=== PATIENT | male | born 2000 | race Hispanic/Latino ===

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

== ENCOUNTER 2021-06-23 15:23 | Emergency (ER) | payer OTHER, SELFPAY ==
[2021-06-23 16:21] LABS: Absolute Lymphocytes (CBC) 1.1 K/uL (0.7-4.9); Hematocrit 36.1 % (39.6-49.0); Lymphocytes % 7.1 % (15.3-44.8); MPV 7.7 fL (7.6-11.3); RBC Red Blood Cell Count 4.32 M/uL (4.33-5.43)
[2021-06-23] MEDS ORDERED: ONDANSETRON 4 MG/2 ML VIAL ONE (16:24)
[2021-06-23] MEDS ORDERED: NA CHLORIDE 0.9% 1,000 ML ONE (16:24)
[2021-06-23] MEDS ORDERED: ACETAMINOPHEN 325 MG TABLET ONE (16:24)
[2021-06-23 16:43] LABS: Potassium 3.4 mmol/L (3.5-5.1); Sodium Level 132 mmol/L (136-145)
[2021-06-23 16:46] LABS: Albumin 2.3 g/dL (3.4-5.0); BUN Blood Urea Nitrogen 10 mg/dL (7-18); Bicarbonate 28 mmol/L (21-32); Glucose Level 102 mg/dL (74-106); Lipase 127 U/L (73-393)
[2021-06-23 16:48] LABS: ALT/SGPT 55 U/L (12-78)
[2021-06-23 16:49] LABS: AST/SGOT 39 U/L (15-37)
[2021-06-23 16:50] LABS: Bilirubin Total 1.6 mg/dL (0.2-1.0); Protein, Total 8.6 g/dL (6.4-8.2)
[2021-06-23 16:51] LABS: Alkaline Phosphatase 157 U/L (45-117)
--- NOTE | 2021-06-23 16:59 | RAD REPORT ---
EXAM DESCRIPTION: RAD - Chest Single View - 06/23/2021 4:41 pm CLINICAL HISTORY: fever;Cough COMPARISON: No remote imaging TECHNIQUE: AP portable chest image was obtained 06/23/2021 4:41 pm . FINDINGS: Lung volumes are low. Right base opacification is present most likely pneumonia. No failur e or volume overload. Heart and vasculature are normal. No measurable pleural effusion and no pneumothorax. No acute bony abnormality seen. No acute aortic findings suspected. IMPRESSION: Right lung base pneumonia
--- NOTE | 2021-06-23 17:03 | RAD REPORT ---
EXAM DESCRIPTION: CT - Abdomen Pelvis W Contrast - 06/23/2021 4:37 pm CLINICAL HISTORY: fever, vomiting, not tolerating pO COMPARISON: CT chest same date, portable chest same date TECHNIQUE: Biphasic, helical CT imaging of the abdomen and pelvis was performed following 100 ml non -ionic IV contrast. No oral contrast administered. All CT scans are performed using dose optimization technique as appropriate and may include automated exposure control or mA/KV adjustment according to patient size. FINDINGS: Lung base findings are separately detailed CT chest report The liver, spleen, and pancreas show no suspicious findings. Gallbladder and biliary tree are also wi thout suspicious finding. Symmetric renal function is seen with no hydronephrosis or suspicious renal mass. No pyelonephritis o r acute parenchymal process. A 2.4 centimeter upper pole left renal cyst is present. A few additional sub centimeter renal cysts are present in the bilateral kidneys. No adrenal abnormalities. No urinar y bladder abnormality. No dilated bowel loops or bowel wall thickening. Appendix is normal. No free air, free fluid or infla mmatory stranding. No hernia, mass or bulky lymphadenopathy. No suspicious bony findings. IMPRESSION: Contrast enhanced CT abdomen and pelvis showing no acute or emergent finding. Please see separate CT chest report.
--- NOTE | 2021-06-23 17:07 | RAD REPORT ---
EXAM DESCRIPTION: CT - Thorax Wo Con - 06/23/2021 4:42 pm CLINICAL HISTORY: dyspnea, fever COMPARISON: Chest Single View dated 06/23/2021 TECHNIQUE: Axial 5 mm thick images of the chest were obtained without IV contrast. All CT scans are performed using dose optimization technique as appropriate and may include automated exposure control or mA/KV adjustment according to patient size. FINDINGS: Posterior right lower lobe consolidated parenchyma present. A few small air bronchograms a re present. A loculated pleural effusion is present in the posterior gutter on the right. Loculated f luid is relatively homogeneous. No air within the loculated fluid. Associated pleural thickening is p resent. Remaining right lobes and the left lung field are clear. No left-sided pleural fluid or pleur al thickening. No pneumothorax. No abnormal mediastinal or hilar masses or lymphadenopathy seen. No gross aortic or pulmonary artery finding suspected. Assessment is limited in the absence of IV contrast. No chest wall mass or abnormal axillary lymphadenopathy. IMPRESSION: Moderate-sized right lower lobe pneumonia with associated loculated pleural fluid collec tion in the posterior gutter. Presence of loculated pleural collection adjacent to pneumonia in a patient this age could indicate e mpyema.
[2021-06-23] MEDS ORDERED: CEFTRIAXONE 1000 MG/VIAL ONE (17:13)
[2021-06-23] MEDS ORDERED: AZITHROMYCIN 500 MG INJ IVPB ONE (17:14)
[2021-06-23] MEDS ORDERED: NA CHLORIDE 0.9% 250 ML ONE ×2 (17:14→21:32)
--- NOTE | 2021-06-23 17:37 | ER ---
Nurse's Notes [facility] Name: Francis Hughes Age: 21 yrs Sex: Male : 2000 Arrival Date: 06/23/2021 Time: 15:25 Bed 26 Private MD: Diagnosis: Pneumonia, unspecified organism;Empyema;Loculated pleural effusion Presentation: 06/23 15:42 Chief complaint: Patient states: "I have been having acid reflux and n/v for a week ab2 now. Im weak and SOB. I have had decreased appetite for a week now as well.". Coronavirus screen: Vaccine status: Patient reports receiving the 2nd dose of the covid vaccine. Client denies travel out of the [place] in the last 14 days. cough unrelated to allergies, difficulty breathing, fatigue, fever, Client presents with at least one sign or symptom that may indicate coronavirus-19. Standard/surgical mask placed on the client. Provider contacted for isolation considerations. Ebola Screen: Patient negative for fever greater than or equal to 101.5 degrees Fahrenheit, and additional compatible Ebola Virus Disease symptoms Patient denies exposure to infectious person. Patient denies travel to an Ebola-affected area in the 21 days before illness onset. No symptoms or risks identified at this time. Initial Sepsis Screen: Does the patient meet any 2 criteria? Temp <36.0*C (96.8*F)) or > 38.3*C (100.9*F). HR > 90 bpm. Yes Does the patient have a suspected source of infection? No. Patient's initial sepsis screen is negative. Risk Assessment: Do you want to hurt yourself or someone else? Patient reports no desire to harm self or others. Onset of symptoms is unknown. 15:42 Method Of Arrival: Ambulatory ab2 15:42 Acuity: ANDRÉS 3 ab2 23:03 Note Report given to [place] with [employer]. Pt will continue NS with 20mEQ ss7 of KCL \\T\\125ml and Vancomycin 1.5g \\T\\125ml. Pt in stable condition. All personal belongings taken home by mother. Triage Assessment: 15:48 General: Appears in no apparent distress. comfortable, Behavior is calm, cooperative, ab2 appropriate for age. Pain: Denies pain. GI: Reports intolerance of fluids, intolerance of food, nausea, vomiting. Historical: - Allergies: 17:49 No Known Allergies; jl7 - Home Meds: 15:47 None [Active]; ab2 - PMHx: 15:47 Gastric reflux; ab2 - PSHx: 15:47 None; ab2 - Immunization history:: Adult Immunizations up to date, Client reports receiving the 2nd dose of the Covid vaccine. - Social history:: Smoking status: Patient denies any tobacco usage or history of. - Family history:: not pertinent. - Hospitalizations: : No recent hospitalization is reported. Screenin:39 Abuse screen: Denies threats or abuse. Nutritional screening: No deficits noted. ss7 Tuberculosis screening: No symptoms or risk factors identified. Fall Risk IV access (20 points). Assessment: 16:20 General: Appears in no apparent distress. comfortable, Behavior is calm, cooperative, ss7 appropriate for age. Neuro: No deficits noted. Cardiovascular: No deficits noted. Heart tones S1 S2 Rhythm is sinus tachycardia. Respiratory: Reports cough that is non-productive, dry, Airway is patent Breath sounds are clear bilaterally. GI: Abdomen is flat, non-distended, Bowel sounds present X 4 quads. Abd is soft and non tender. : No deficits noted. EENT: No deficits noted. Derm: No deficits noted. Musculoskeletal: No deficits noted. 17:33 Reassessment: Patient is alert, oriented x 3, equal unlabored respirations, skin lr4 warm/dry/pink. Pt resting in on stretcher in semifowlers position, vss, appears to be in nad Patient states symptoms have improved. Vital Signs: 15:42 BP 130 / 74; Pulse 124; Resp 18; Temp 102.3(O); Pulse Ox 97% on R/A; Weight 71.21 kg; ab2 Height 5 ft. 7 in. (170.18 cm); Pain 0/10; 16:00 BP 125 / 66; Pulse 117; Resp 20; Pulse Ox 98% ; ss7 17:17 BP 113 / 70; Pulse 99; Resp 20; Temp 100.8; Pulse Ox 98% on R/A; ss7 18:07 BP 100 / 67; Pulse 90; Resp 22; Pulse Ox 97% on R/A; lr4 18:30 BP 106 / 70; Pulse 84; Resp 20; Pulse Ox 97% ; ss7 19:07 BP 109 / 72; Pulse 87; Resp 24; Pulse Ox 96% on R/A; lr4 20:00 BP 107 / 61; Pulse 88; Resp 20; Pulse Ox 96% on R/A; ss7 21:39 BP 102 / 64; Pulse 101; Resp 20; Temp 99.1; Pulse Ox 100% ; lr4 23:02 BP 113 / 86; Pulse 100; Resp 20; Temp 100.8; Pulse Ox 97% on R/A; ss7 15:42 Body Mass Index 24.59 (71.21 kg, 170.18 cm) ab2 ED Course: 15:25 Patient arrived in ED. as 15:47 Triage completed. ab2 15:48 Arm band placed on left wrist. ab2 15:51 Jorge A Lucero MD is Attending Physician. rn 16:13 EKG done, by ED staff. lr4 16:34 Strep Sent. ss7 16:34 Lactate Sent. ss7 16:34 Procalcitonin Sent. ss7 16:34 Blood Culture Adult (2) Sent. ss7 16:34 COVID-19/FLU A+B (Document "Date of Onset" if Symptomatic) Sent. ss7 16:34 Hepatic Function Sent. ss7 16:34 Lipase Sent. ss7 16:34 Basic Metabolic Panel Sent. ss7 16:37 CT Abd/Pelvis - IV Contrast Only In Process Unspecified. EDMS 16:39 Patient has correct armband on for positive identification. Placed in gown. Bed in low ss7 position. Call light in reach. Side rails up X2. Adult w/ patient. 16:40 CT Chest Wo Con In Process Unspecified. EDMS 16:40 XRAY Chest (1 view) In Process Unspecified. EDMS 16:40 No provider procedures requiring assistance completed. Inserted saline lock: 20 gauge ss7 in right in left antecubital area, using aseptic technique. forearm, using aseptic technique. 17:01 COVID-19/FLU A+B (Document "Date of Onset" if Symptomatic) Sent. lr4 17:17 initiated a transfer with Enid Guzmán Rn from the [facility]. eb 19:27 Attending Physician role handed off by Jorge A Lucero MD shruthi 19:27 Jairo Burrell MD is Attending Physician. shruthi 20:00 teletypesetter monitor on. Pulse ox on. NIBP on. ss7 21:54 Report given to NAOMI Talbert [phone]. 7 23:06 Patient transferred, IV remains in place. ss7 Administered Medications: 16:24 Drug: Tylenol 650 mg Route: PO; ss7 19:09 Follow up: Response: Temperature is decreased lr4 16:25 Drug: NS 0.9% 1000 ml Route: IV; Rate: 1000 ml; Site: right antecubital; ss7 17:32 Follow up: IV Status: Completed infusion; IV Intake: 1000ml lr4 16:25 Drug: Zofran (Ondansetron) 4 mg Route: IVP; Site: right antecubital; ss7 17:31 Follow up: Response: Nausea is decreased lr4 17:15 Drug: Rocephin (cefTRIAXone) 1 grams Route: IV; Rate: calculated rate; Site: right lr4 antecubital; 17:25 Follow up: IV Status: Completed infusion; IV Intake: 10ml lr4 17:45 Follow up: IV Status: Completed infusion ss7 18:36 Follow up: Response: No adverse reaction ss7 17:25 Drug: Zithromax (azithromycin) 500 mg Route: IVPB; Infused Over: 1 hrs; Site: right lr4 antecubital; 17:32 Follow up: IV Status: Infusion continued lr4 18:10 Follow up: IV Status: Completed infusion; IV Intake: 250ml lr4 18:25 Follow up: Response: No adverse reaction; IV Status: Completed infusion ss7 21:00 Drug: NS 0.9% with KCl 20 mEq/L 1000 ml Route: IV; Rate: 125 ml/hr; Site: right ss7 antecubital; 21:10 Drug: Zosyn (piperacillin-tazobactam) 3.375 grams Route: IVPB; Infused Over: 60 mins; ss7 Site: left antecubital; 23:00 Drug: vancoMYCIN 1.5 grams {Note: 125ml/hr.} Route: IVPB; Rate: calculated rate; ss7 Infused Over: 2 hrs; Site: left forearm; Intake: 17:25 IV: 10ml; Total: 10ml. lr4 17:32 IV: 1000ml; Total: 1010ml. lr4 18:10 IV: 250ml; Total: 1260ml. lr4 Outcome: 17:36 ER care complete, transfer ordered by rn 21:54 Transferred by ground EMS Note: to "[facility]" ss7 21:54 Condition: stable 23:06 Patient left the ED. ss7 Signatures: Dispatcher [employer] Jairo Toth MD MD cha Martinez, Amelia as Nieto, Roman, MD MD rn Leal, Jahala, RN RN jl7 Madina Pruitt, Shereen Ruelas RN RN ss7 Vanesa Hudson RN RN lr4
--- NOTE | 2021-06-23 17:37 | EDPHYS ---
Physician Documentation [facility] Name: Francis Hughes Age: 21 yrs Sex: Male : 2000 Arrival Date: 06/23/2021 Time: 15:25 Bed 26 Private MD: LUKE Physician Jairo Burrell HPI: 06/23 16:05 This 21 yrs old Male presents to ER via Ambulatory with complaints of rn Vomiting, Weakness, Indigestion, Cough, Dizziness. 16:05 The patient presents to the emergency department with nausea, vomiting. rn 16:05 The patient reports fever, that was measured at 103 degrees Fahrenheit. Onset: The rn symptoms/episode began/occurred 1 week(s) ago. Modifying factors: there are no obvious modifying factors. Associated signs and symptoms: Pertinent positives: chills, cough, nausea, shortness of breath, vomiting. Severity of symptoms: At their worst the symptoms were mild in the emergency department the symptoms are unchanged. The patient has not experienced similar symptoms in the past. Pt reports 1 week of feeling ill, fever to 102, reports acid reflux and nausea/vomiting, mainly in mornings, not keeping anything down, also reports cough and sob with minimal exertion. Took home COVID test and was negative. No known sick contacts. . Historical: - Allergies: 17:49 No Known Allergies; jl7 - Home Meds: 15:47 None [Active]; ab2 - PMHx: 15:47 Gastric reflux; ab2 - PSHx: 15:47 None; ab2 - Immunization history:: Adult Immunizations up to date, Client reports receiving the 2nd dose of the Covid vaccine. - Social history:: Smoking status: Patient denies any tobacco usage or history of. - Family history:: not pertinent. - Hospitalizations: : No recent hospitalization is reported. ROS: 16:05 Constitutional: Negative for fever, chills, and weight loss, Eyes: Negative for injury, rn pain, redness, and discharge, Neck: Negative for injury, pain, and swelling, Cardiovascular: Negative for chest pain, palpitations, and edema, Respiratory: + cough and sob. Abdomen/GI: + nausea and vomiting Back: Negative for injury and pain, : Negative for injury, bleeding, discharge, and swelling, MS/Extremity: Negative for injury and deformity, Skin: Negative for injury, rash, and discoloration, Neuro: + generalized weakness Exam: 16:05 Constitutional: This is a well developed, well nourished patient who is awake, alert, rn and in no acute distress. Head/Face: Normocephalic, atraumatic. Eyes: Periorbital areas with no swelling, redness, or edema. ENT: dry MM, no stridor Neck: Trachea midline, no thyromegaly or masses palpated, and no cervical lymphadenopathy. Supple, full range of motion without nuchal rigidity, or vertebral point tenderness. No Meningismus. Cardiovascular: Tachycardic, regular Respiratory: + mild tachypnea, no retractions. Abdomen/GI: Soft, non-tender Skin: Warm, dry, no cellulitis MS/ Extremity: Pulses equal, no cyanosis. Neurovascular intact. Full, normal range of motion. Equal circumference. Neuro: Awake and alert, GCS 15 18:28 ECG was reviewed by the Attending Physician. rn Vital Signs: 15:42 BP 130 / 74; Pulse 124; Resp 18; Temp 102.3(O); Pulse Ox 97% on R/A; Weight 71.21 kg; ab2 Height 5 ft. 7 in. (170.18 cm); Pain 0/10; 16:00 BP 125 / 66; Pulse 117; Resp 20; Pulse Ox 98% ; ss7 17:17 BP 113 / 70; Pulse 99; Resp 20; Temp 100.8; Pulse Ox 98% on R/A; ss7 18:07 BP 100 / 67; Pulse 90; Resp 22; Pulse Ox 97% on R/A; lr4 18:30 BP 106 / 70; Pulse 84; Resp 20; Pulse Ox 97% ; ss7 19:07 BP 109 / 72; Pulse 87; Resp 24; Pulse Ox 96% on R/A; lr4 20:00 BP 107 / 61; Pulse 88; Resp 20; Pulse Ox 96% on R/A; ss7 21:39 BP 102 / 64; Pulse 101; Resp 20; Temp 99.1; Pulse Ox 100% ; lr4 23:02 BP 113 / 86; Pulse 100; Resp 20; Temp 100.8; Pulse Ox 97% on R/A; ss7 15:42 Body Mass Index 24.59 (71.21 kg, 170.18 cm) ab2 MDM: 15:52 Patient medically screened. rn 17:34 Differential diagnosis: viral Infection, bacterial infection, URI, pneumonia. Data rn reviewed: vital signs, nurses notes, lab test result(s), radiologic studies, CT scan, plain films, and as a result, I will admit patient. Counseling: I had a detailed discussion with the patient and/or guardian regarding: the historical points, exam findings, and any diagnostic results supporting the discharge/admit diagnosis, lab results, radiology results, the need for further work-up and treatment in the hospital, the need to transfer to another facility, for higher level of care, [facility] does not immediately have the required specialist. Response to treatment: the patient's symptoms have mildly improved after treatment, and as a result, I will admit patient. ED course: Pt with right sided pneumonia, loculated effusion with empyema, will transfer to [place] given empyema, no IR here, and pulmonology here does not drain loculated effusions, may need cardiothoracic consultation.. 18:50 ED course: still no callback from [facility]. Patient requests for us to also try rn [facility] as that is the hospital their family uses. Initiated transfer there as well, waiting for callback.. 06/23 15:59 Order name: CBC with Diff; Complete Time: 16:28 rn 06/23 15:59 Order name: Basic Metabolic Panel; Complete Time: 16:58 rn 06/23 15:59 Order name: Hepatic Function; Complete Time: 16:58 rn 06/23 15:59 Order name: Lipase; Complete Time: 16:58 rn 06/23 15:59 Order name: COVID-19/FLU A+B (Document "Date of Onset" if Symptomatic); Complete Time: rn 18:30 06/23 15:59 Order name: Blood Culture Adult (2) rn 06/23 15:59 Order name: XRAY Chest (1 view); Complete Time: 17:05 rn 06/23 15:59 Order name: Procalcitonin; Complete Time: 18:30 rn 06/23 15:59 Order name: Lactate; Complete Time: 16:58 rn 06/23 15:59 Order name: Strep; Complete Time: 18:30 rn 06/23 16:00 Order name: CT Abd/Pelvis - IV Contrast Only; Complete Time: 17:05 rn 06/23 16:38 Order name: CT Chest Wo Con; Complete Time: 17:08 rn 06/23 17:35 Order name: Throat Culture EDKY 06/23 20:58 Order name: CREATININE WHOLE BLOOD EDKY 06/23 15:59 Order name: IV Start; Complete Time: 16:34 rn 06/23 15:59 Order name: Labs collected and sent; Complete Time: 16:34 rn 06/23 15:59 Order name: Glucose Level; Complete Time: 16:34 rn EC:28 Rate is 113 beats/min. Rhythm is regular. QRS [place] is Normal. UT interval is normal. rn QRS interval is normal. QT interval is normal. No Q waves. T waves are Normal. No ST changes noted. Clinical impression: Sinus tachycardia. Interpreted by me. Reviewed by me. Administered Medications: 16:24 Drug: Tylenol 650 mg Route: PO; ss7 19:09 Follow up: Response: Temperature is decreased lr4 16:25 Drug: NS 0.9% 1000 ml Route: IV; Rate: 1000 ml; Site: right antecubital; ss7 17:32 Follow up: IV Status: Completed infusion; IV Intake: 1000ml lr4 16:25 Drug: Zofran (Ondansetron) 4 mg Route: IVP; Site: right antecubital; ss7 17:31 Follow up: Response: Nausea is decreased lr4 17:15 Drug: Rocephin (cefTRIAXone) 1 grams Route: IV; Rate: calculated rate; Site: right lr4 antecubital; 17:25 Follow up: IV Status: Completed infusion; IV Intake: 10ml lr4 17:45 Follow up: IV Status: Completed infusion ss7 18:36 Follow up: Response: No adverse reaction ss7 17:25 Drug: Zithromax (azithromycin) 500 mg Route: IVPB; Infused Over: 1 hrs; Site: right lr4 antecubital; 17:32 Follow up: IV Status: Infusion continued lr4 18:10 Follow up: IV Status: Completed infusion; IV Intake: 250ml lr4 18:25 Follow up: Response: No adverse reaction; IV Status: Completed infusion ss7 21:00 Drug: NS 0.9% with KCl 20 mEq/L 1000 ml Route: IV; Rate: 125 ml/hr; Site: right ss7 antecubital; 21:10 Drug: Zosyn (piperacillin-tazobactam) 3.375 grams Route: IVPB; Infused Over: 60 mins; ss7 Site: left antecubital; 23:00 Drug: vancoMYCIN 1.5 grams {Note: 125ml/hr.} Route: IVPB; Rate: calculated rate; ss7 Infused Over: 2 hrs; Site: left forearm; Disposition Summary: 06/23/21 17:36 Transfer Ordered Transfer Location: [facility] rn Reason: Higher level of care rn Condition: Stable rn Problem: new rn Symptoms: have improved rn Accepting Physician: (06/23/21 23:06) ss7 Diagnosis - Pneumonia, unspecified organism rn - Empyema rn - Loculated pleural effusion rn Forms: - Medication Reconciliation Form rn - SBAR form rn Signatures: Dispatcher [employer] Jairo Toth MD MD cha Nieto, Roman, MD MD rn Leal, Jahala RN RN jl7 Hakeem Amaya Shana RN RN ss7 Vanesa Hudson RN RN [id number] Corrections: (The following items were deleted from the chart) 23:06 17:36 rn ss7
[2021-06-23 17:44] LABS: SARS-COV-2 RT PCR NEGATIVE (NEGATIVE)
[2021-06-23] MEDS ORDERED: PIPERACIL/TAZO 3.375 GM VIAL IV ONE (21:01)
[2021-06-23] MEDS ORDERED: NS KCL 20MEQ 1,000 ML IV ONE (21:01)
[2021-06-23] MEDS ORDERED: NA CHLORIDE 0.9% 100 ML IV ONE (21:01)
[2021-06-23] MEDS ORDERED: VANCOMYCIN 1 GM/VIAL ONE (21:31)
[2021-06-23 23:42] VITALS: BP 113/86; TEMP 100.8; O2SAT 97
== END 2021-06-23 23:06 | disposition short-term general hospital (02) ==
LOC: ER 15:23
DX: J18.9 Pneumonia, unspecified organism (principal); J86.9 Pyothorax without fistula; J90 Pleural effusion, not elsewhere classified; Z20.822 Contact with and (suspected) exposure to COVID-19
CPT/HCPCS: 93005; 87040 ×2; 87070; 85025; 80048; 36415; 82565; 80076; 87081; 83605; 83690; 84145; 0240U; 71250; 74177; 71045; 99285; Q9967; J2543; J0456; J3370; J7050 ×2; J7030; J2405; J3480